=== PATIENT | male | born 1940 | race Two or more races ===

== ENCOUNTER → 2018-12-15 | Emergency (ER) | payer OTHER ==
[~2018-12-15] MED LIST: GLIMEPIRIDE4 MG; NORVASC2.5 M1
== END | disposition left against medical advice (07) ==
LOC: ER 07:35
DX: Z53.20 Procedure and treatment not carried out because of patient's decision for unspecified reasons (principal)

== ENCOUNTER 2020-06-30 21:17 | Inpatient (IN) | payer OTHER ==
[~2020-06-30] VITALS: Ht 172.7 cm; Wt 72.6 kg
[2020-07-01] MEDS ORDERED: AMLODIPINE-BEN1 EAC3 (14:13)
[2020-07-01] MEDS ORDERED: ATORVASTATIN CA20 MG (14:14)
== END 2020-07-13 19:29 | disposition home or self-care (01) | DRG 339 ==
LOC: ER 21:17 → SEC-K 07-01 08:01 → O/R 07-01 08:01 → SURH 07-01 14:43
PROVIDERS: ADMIT Surgery; ATTEND Surgery
PROC: 0DTJ4ZZ Resection of Appendix, Percutaneous Endoscopic Approach (ICD-10-PCS; principal; 2020-07-01 10:15)
PROC: 0W9G30Z Drainage of Peritoneal Cavity with Drainage Device, Percutaneous Approach (ICD-10-PCS; 2020-07-07)
DX: K35.33 Acute appendicitis with perforation, localized peritonitis, and gangrene, with abscess (principal); T81.43XA Infection following a procedure, organ and space surgical site, initial encounter; B37.49 Other urogenital candidiasis; I10 Essential (primary) hypertension; E11.65 Type 2 diabetes mellitus with hyperglycemia; B96.5 Pseudomonas (aeruginosa) (mallei) (pseudomallei) as the cause of diseases classified elsewhere; Z20.822 Contact with and (suspected) exposure to COVID-19; Z79.4 Long term (current) use of insulin